=== PATIENT | male | born 1990 | race Caucasian/White ===

== ENCOUNTER 2019-05-29 03:59 | Inpatient (IN) ==
[2019-05-29] MEDS ORDERED: NS 1,000 ML IV ONE ×3 (04:15→05:52)
[2019-05-29 04:51] LABS: BASO# 0.06 X1000 (0.0-0.2); BASO% 0.4 % (0.0-0.8); EOS# 0.02 X1000 (0.0-0.7); EOS% 0.1 % (0.0-10.0); HEMATOCRIT 44.6 % (42.0-52.0); HEMOGLOBIN 15.4 g/dL (14.0-18.0); IMM GRAN# 0.03 X1000 (0.0-0.04); IMM GRAN% 0.2 % (0.0-0.5); LYMPH# 1.81 X1000 (1.2-3.4); LYMPH% 11.5 % (20.5-51.1); MCH 27.2 PG (27-31); MCHC 34.5 g/dL (33-37); MCV 78.7 FL (81-99); MONO# 2.18 X1000 (0.11-0.59); MONO% 13.9 % (1.7-9.3); MPV 11.4 FL (7.4-10.4); NEUT% 73.9 % (42.2-75.2); PLT 344 X1000 (130-400); RBC 5.67 XMIL (4.7-6.1)
--- NOTE | 2019-05-29 04:54 | EKG Report ---
Test Performed on : 05/29/2019 04:06:03 AM Test Reason : TACHYCARDIA Blood Pressure : / mmHG Vent. Rate : 135 BPM Atrial Rate : 135 BPM P-R Int : 118 ms QRS Dur : 084 ms QT Int : 298 ms P-R-T Axes : 066 040 079 degrees QTc Int : 447 ms Sinus tachycardia. Nonspecific ST and T wave abnormality Abnormal ECG No previous ECGs available Unconfirmed Result
[2019-05-29 04:58] LABS: URINE SOURCE CLEAN CATCH
--- NOTE | 2019-05-29 05:11 | PROVIDER DOCUMENTATION ---
HPI-General Adult - General Chief Complaint: Generalized Pain Stated Complaint: MUSCLE CRAMPS Time Seen by Provider: 05/29/19 04:05 Source: patient Allergies/Adverse Reactions: Patient Allergies Allergy/AdvReac Type Severity Reaction Status Date / Time No Known Allergies Allergy Verified 05/29/19 04:42 Home Medications: Home Medication List Medication Instructions Recorded Confirmed Last Taken Type NK [No Home Medications] 05/29/19 05/29/19 Unknown History - History of Present Illness -Gen Adult Nature of Presenting Problems: Presents to the via EMS who states that he thinks he is dehydrated. He states that he feels cramping all over his body. He appears very anxious and seems to jump from topic to topic. He additonally states that the tip of his right middle finger felt numb for a minute the other day and he has has been having left sided back pain. He endorses a history of amphetamine use and marijuana use. Denies any alcohol use. Review of Systems - Adult - REVIEW OF SYSTEMS - ADULT Constitutional: reports: see HPI Eyes: reports: no symptoms reported Ears, Nose, Mouth & Throat: reports: no symptoms reported Cardiovascular: reports: no symptoms reported, see HPI Respiratory: reports: no symptoms reported Gastrointestinal: reports: no symptoms reported Genitourinary: reports: no symptoms reported Musculoskeletal: reports: see HPI, frequent leg cramps, muscle aches Integumentary: reports: no symptoms reported Neurological: reports: no symptoms reported Psychiatric: reports: no symptoms reported Endocrine: reports: no symptoms reported Hematologic/Lymphatic: reports: no symptoms reported Allergic/Immunologic: reports: no symptoms reported All Other Systems: Reviewed and Negative Past History - Adult - PAST MEDICAL HISTORY-ADULT Review of Records: reports: Old Records Reviewed Physical Exam-General - PHYSICAL EXAM-ADULT Initial Vital Signs Reviewed: Yes - CONSTITUTIONAL General Appearance: alert, anxious - EYES Eyes: PERRL/EOMI - HEAD, EARS, NOSE, MOUTH & THROAT HENMT: normocephalic/atraumatic, other (dry mucous membranes) - NECK Neck: supple, normal inspection - RESPIRATORY Respiratory: chest non-tender, lungs clear, normal breath sounds - CARDIOVASCULAR Cardiovascular: normal peripheral pulses, no murmur, tachycardia - GASTROINTESTINAL (ABDOMEN) Abdominal Exam: normal bowel sounds, non tender, soft - MUSCULOSKELETAL Back Exam: normal inspection Extremity: normal range of motion, non-tender, normal gait, normal inspection - SKIN Integumentary: normal color, diaphoresis - NEUROLOGIC Neurologic: grossly normal - PSYCHIATRIC Psych/Mental Status: oriented x 3, anxious, disheveled Progress - PLAN OF CARE/RESULTS Progress/Plan/Lab Results: Vital Signs - 8 hr 05/29/19 04:11 Temperature 98.8 F Pulse Rate 144 H Respiratory Rate 13 Blood Pressure 131/90 O2 Sat by Pulse Oximetry 98 Laboratory Results - last 24 hr 05/29/19 05/29/19 04:30 04:52 WBC 15.70 H RBC 5.67 Hgb 15.4 Hct 44.6 MCV 78.7 L MCH 27.2 MCHC 34.5 RDW Std Deviation 14.0 Plt Count 344 MPV 11.4 H Immature Gran % (Auto) 0.2 Neut % (Auto) 73.9 Lymph % (Auto) 11.5 L [place] % (Auto) 13.9 H Eos % (Auto) 0.1 Baso % (Auto) 0.4 Immature Gran # (Auto) 0.03 Neut # (Auto) 11.60 H Lymph # (Auto) 1.81 [place] # (Auto) 2.18 H Eos # (Auto) 0.02 Baso # (Auto) 0.06 Urine Source CLEAN CATCH Orders Category Date Time Status CBC WITH ELECTRONIC DIFF [HEME] Stat Lab 05/29/19 04:30 Completed CK TOTAL [CHEM] Stat Lab 05/29/19 04:30 Received COMPREHENSIVE METABOLIC PANEL [CHEM] Stat Lab 05/29/19 04:30 Received URINALYSIS W/POSS RFLX CULT [URINALYSIS] Stat Lab 05/29/19 04:52 Results URINE DRUG SCREEN Stat Lab 05/29/19 04:54 Received 0.9% Sodium Chloride Inj [Ns] 1,000 ml Med 05/29/19 04:15 Active IV 999 mls/hr 0.9% Sodium Chloride Inj [Ns] 1,000 ml Med 05/29/19 04:16 Active IV 999 mls/hr EKG [EKG] Stat Ther 05/29/19 04:51 Draft Patient with initial HR in the 140s-150s. CK only 388 but Cr 2.7. UDS + for amphetamines which is likely contributing to his tachycardia, however still has POPEYE. Spoke to Dr Stafford, cap and hat production supervisor for hospitalist who accepted patient for admission. Further orders to be placed by their team. Result Diagrams: 05/29/19 04:30 05/29/19 04:30 - EKG 1 Time of EKG reading by physician:: 04:09 EKG Read and Signed by:: Bea Craft EKG Interpretation (*Must complete 3 of following elements*): Abnormal Rate: 135 Rhythm: Sinus Tachycardia [place]: normal QRS: normal NM Interval: normal ST Wave: normal - CONSULTS/PCP/HOSPITALIST Notification #1 *Consult/PCP/Hospitalist*: Dr Stafford Time Discussed: 06:11 Consult Disposition: Admit Departure - Departure Date of Disposition Decision: 05/29/19 Time of Disposition Decision: 06:11 DIAGNOSIS: Rhabdomyolysis, Amphetamine abuse, Tachycardia, Dehydration, POPEYE (acute kidney injury) Disposition: ADMITTED INPATIENT 09 Certified Medical Emergency: Emergent Condition: Stable Referrals and Follow-Ups: None,PCP [Primary Care Provider] - - Critical Care Note This patient required my direct & personal management of CC.: No Attestation - Physician/ TIM Attestation Patient care was provided by Advanced Practice Provider:: No The physician spent face to face time with patient:: Yes Advanced Practice Provider documentation review:: Supervising physician onsite and consulted in the evaluation and care of this patient. The physician did have a face to face encounter with the patient.
[2019-05-29 05:12] LABS: ALB/GLOB RATIO 1.7; ALBUMIN 5.8 g/dL (3.5-5.0); POTASSIUM 4.2 mmol/L (3.5-5.1); TOTAL PROTEIN 9.3 g/dL (6.3-8.3)
[2019-05-29 05:17] LABS: BILIRUBIN URINE SMALL (NEGATIVE); COLOR YELLOW; GLUCOSE URINE NEGATIVE (NEGATIVE); KETONE URINE 20 mg/dL (NEGATIVE); SP GRAVITY URINE 1.023; TURBIDITY URINE TURBID (CLEAR)
[2019-05-29 05:18] LABS: BLOOD URINE SMALL (NEGATIVE); LEUKOCYTES URINE NEGATIVE (NEGATIVE); NITRITE URINE NEGATIVE (NEGATIVE); PH URINE 5.5; PROTEIN URINE 100 mg/dL (NEGATIVE); UR EPITHELIAL CELLS >10 /HPF (<10); URINE BACTERIA NEGATIVE /HPF; URINE RBC <10 /HPF (<10); URINE WBC 20-40 /HPF (<10); UROBILINOGEN URINE 3 mg/dL (NORMAL)
[2019-05-29 05:35] LABS: CALCIUM 10.6 mg/dL (8.8-10.2); CREATININE 2.7 mg/dL (0.7-1.2); TOTAL BILIRUBIN 1.22 mg/dL (0.20-1.00)
[2019-05-29 05:36] LABS: UR AMPHETAMINES QUAL PRESUMPTIVE POSITIVE (NONE DETECT); UR BARBITUATES QUAL NONE DETECTED (NONE DETECT); UR BENZODIAZEPIN QUAL NONE DETECTED (NONE DETECT); UR CANNABINOIDS QUAL NONE DETECTED (NONE DETECT); UR COCAINE QUAL NONE DETECTED (NONE DETECT); UR METHADONE QUAL NONE DETECTED (NONE DETECT); UR OPIATES QUAL NONE DETECTED (NONE DETECT); UR OXYCODONE QUAL NONE DETECTED (NONE DETECT); UR PCP QUAL NONE DETECTED (NONE DETECT)
[2019-05-29] MEDS: NS 1,000 ML IV SCH ×5 (06:00→20:58)
[2019-05-29 06:31] LABS: URINE CASTS NONE SEEN; URINE SMALL ROUND CELLS NONE SEEN; URINE YEAST NONE SEEN
[2019-05-29 06:33] LABS: URINE CRYSTALS NONE SEEN
[2019-05-29] MEDS ORDERED: TYLENOL PO PRN (07:37)
[2019-05-29] MEDS ORDERED: ZOFRAN IV PRN (07:37)
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
[2019-05-29 09:11] LABS: FREE T4 1.85 ng/dL (0.93-1.70); TSH 3.95 uIUmL (0.27-4.20)
[2019-05-30] MEDS ORDERED: NICODERM PATCH TD PRN (03:25)
[2019-05-30 06:18] LABS: INR 1.08; PROTIME 14.2 Seconds (11.0-16.0); PTT 30.4 Seconds (22.3-41.8)
[2019-05-30 06:33] LABS: BASO# 0.03 X1000 (0.0-0.2); BASO% 0.5 % (0.0-0.8); EOS# 0.24 X1000 (0.0-0.7); EOS% 4.1 % (0.0-10.0); HEMATOCRIT 38.4 % (42.0-52.0); HEMOGLOBIN 12.8 g/dL (14.0-18.0); LYMPH# 1.77 X1000 (1.2-3.4); LYMPH% 30.2 % (20.5-51.1); MCHC 33.3 g/dL (33-37); MONO# 1.19 X1000 (0.11-0.59); MONO% 20.3 % (1.7-9.3); MPV 11.2 FL (7.4-10.4); NEUT# 2.63 X1000 (1.4-6.5); NEUT% 44.9 % (42.2-75.2); PLT 225 X1000 (130-400); RBC 4.74 XMIL (4.7-6.1); RDW 14.2 % (11.5-14.5); WBC 5.86 X1000 (4.8-10.8)
[2019-05-30 06:42] LABS: AGAP 11; ALB/GLOB RATIO 1.5; ALBUMIN 4.2 g/dL (3.5-5.0); ALKALINE PHOSPHATASE 58 U/L (32-122); BUN 11 mg/dL (8-22); CALCIUM 9.3 mg/dL (8.8-10.2); CHLORIDE 104 mmol/L (98-107); CK TOTAL 466 U/L (24-204); COSMO 279; CREATININE 0.7 mg/dL (0.7-1.2); ESTIMATED GFR > 60; GLUCOSE 75 mg/dL (70-104); GOT 29 U/L (10-34); GPT 14 U/L (10-44); POTASSIUM 3.9 mmol/L (3.5-5.1); SODIUM 141 mmol/L (136-145); TCO2 26 mmol/L (25-35); TOTAL BILIRUBIN 0.97 mg/dL (0.20-1.00)
[2019-05-30 07:25] LABS: EOS 6 % (1-10); LYMPHS 28 % (21-51); MONO 18 % (1-9); SEGS 48 % (42-75)
[2019-05-30 07:46] VITALS: BP 119/77
--- NOTE | 2019-05-30 09:52 | DISCHARGE SUMMARY ---
ADMISSION DATE: 05/29/2019 DISCHARGE DATE: 05/30/2019 HOSPITAL COURSE: He has no primary care physician. This is a 29-year-old who came to the emergency room. States he was out in the heat and felt like he got overheated. Did not drink or eat much. He does admit to taking amphetamine and cocaine. His muscles, he felt, were real tight and cramping. A lot of swelling and congestion, so admitted. Given IV fluids. He felt much better. He was able to get food down without any problem. Noted that he had a little prerenal insufficiency with creatinine 2.7. The next day, it was 0.7. All his other lab unremarkable and felt he could go home. He is not on any medications, so we will discharge him home. I strongly advised him to quit taking recreational drugs, amphetamine and cocaine, to quit smoking, to find a primary care physician to follow him. cc: Eliot Vitale MD
== END 2019-05-30 09:50 | disposition home or self-care (01) | DRG 683 ==
LOC: ED 03:59 → EDIPHOLD 07:42
PROVIDERS: ATTEND Emergency Medicine